=== PATIENT | female | born 1945 | race Caucasian/White ===

== ENCOUNTER 2016-11-20 07:00 | Inpatient (IN) | payer MEDICARE, OTHER ==
[~2016-11-20] VITALS: Ht 163 cm; Wt 54.0 kg
[2016-11-20 07:43] LABS: CREATININE 0.9 mg/dL (0.5-1.0); POTASSIUM 4.6 mmol/L (3.5-5.1)
[2016-11-21 05:17] LABS: HCT 28.6 % (37.0-47.0); HGB 9.6 g/dl (12.5-16.0); MCH 31.9 pg (25.0-31.0); MCHC 33.6 g/dL (32.0-36.0); MPV 9.4 fL (6.0-9.5); RBC 3.01 M/uL (4.20-5.40); RDW 12.4 % (11.5-14.0); WBC 12.6 K/uL (4.0-10.5)
[2016-11-21 06:13] LABS: CREATININE 0.9 mg/dL (0.5-1.0); POTASSIUM 4.3 mmol/L (3.5-5.1)
[2016-11-22 05:33] LABS: HCT 29.8 % (37.0-47.0); HGB 9.7 g/dl (12.5-16.0); MCH 31.7 pg (25.0-31.0); MCHC 32.6 g/dL (32.0-36.0); MCV 97.4 fL (78.0-100.0); MPV 9.4 fL (6.0-9.5); RBC 3.06 M/uL (4.20-5.40); RDW 12.5 % (11.5-14.0); WBC 11.2 K/uL (4.0-10.5)
[2016-11-23 06:45] LABS: HCT 27.9 % (37.0-47.0); HGB 9.1 g/dl (12.5-16.0); MCH 31.7 pg (25.0-31.0); MCHC 32.6 g/dL (32.0-36.0); MCV 97.2 fL (78.0-100.0); MPV 9.6 fL (6.0-9.5); RBC 2.87 M/uL (4.20-5.40); RDW 12.6 % (11.5-14.0); WBC 9.6 K/uL (4.0-10.5)
== END 2016-11-23 22:12 | DRG 470 ==
LOC: FMS 07:00
PROVIDERS: Nurse Practitioner Adult Health; ADMIT Legal Medicine
PROC: 0SRB04A Replacement of Left Hip Joint with Ceramic on Polyethylene Synthetic Substitute, Uncemented, Open Approach (ICD-10-PCS; principal; 2016-11-20 07:00)
DX: M16.12 Unilateral primary osteoarthritis, left hip (principal); K51.90 Ulcerative colitis, unspecified, without complications; E03.9 Hypothyroidism, unspecified; I10 Essential (primary) hypertension; E78.5 Hyperlipidemia, unspecified; Z93.2 Ileostomy status; Z79.899 Other long term (current) drug therapy
CPT/HCPCS: 36415; 73501; 76000; 80048; 86850; 86900; 86901; 88311; 94010; 97110; 97116; 97162; 97166; 97530; 97530-GP; 97535; C1713; C1776; J0131; J0697; J1100; J1170; J2270; J2405; J2704; J2710; J2795; J3010

== ENCOUNTER 2016-11-23 18:08 | Inpatient (IN) | payer MEDICARE, OTHER ==
[~2016-11-23] VITALS: Ht 160 cm; Wt 54.1 kg
[2016-11-26 06:35] LABS: INR 1.34 (0.9-1.2); PROTHROMBIN TIME 16.1 SECONDS (11.7-14.0)
[2016-11-29 05:46] LABS: INR 1.7 (0.9-1.2); PROTHROMBIN TIME 19.4 SECONDS (11.7-14.0)
--- NOTE | 2016-12-01 14:37 | NUR ---
MET WITH PT. PT. WAS GIVEN CHOICE OF D/C 12/02 OR 12/03. PT. CHOSE TO D/C HOME WITH SPOUSE ON 12/02. PT. REQUESTED [facility]. FIRST APPT. IS 12/03/16 @ 9:40 [facility] TO DELIVER A STRAIGHT CANE UPON DISCHARGE. PURCHASED A HIP KIT FOR PT. D/C NOTICE AND QUESTIONNAIRE GIVEN.
--- NOTE | 2016-12-02 11:21 | NUR ---
PT. D/C HOME WITH SPOUSE ON THIS DATE. PT. REQUESTED OUTPT AT [facility]. FIRST APPT. IS 12/03/16 @ 9:40 [facility] TO DELIVER A STRAIGHT CANE UPON DISCHARGE. D/C NOTICE AND QUESTIONNAIRE GIVEN.
--- NOTE | 2016-12-02 12:15 | NUR ---
71 YEAR OLD FEMALE DC HOME WITH SPOUSE, S/P LEFT ANTERIOR HIP, A/O X3, WENT OVER DC ORDERS R/V UNDERSTANDING
[2016-12-02] MEDS ORDERED: ESTRIOL/ESTRADIOL TOP (14:35)
[2016-12-02] MEDS ORDERED: RESTASIS1 EACH OU (14:36)
[2016-12-02] MEDS ORDERED: NASONEX NAS120 PUFFS (14:36)
[2016-12-02] MEDS ORDERED: COQ-10100 MG PO (14:36)
[2016-12-02] MEDS ORDERED: PRILOSEC20 MG PO (14:37)
[2016-12-02] MEDS ORDERED: SYNTHROID25 MCG PO (14:37)
[2016-12-02] MEDS ORDERED: CELEBREX **OUT100 MG PO (14:37)
[2016-12-02] MEDS ORDERED: ZOCOR20 MG PO (14:37)
[2016-12-02] MEDS ORDERED: PRINIVIL10 MG PO (14:38)
[2016-12-02] MEDS ORDERED: CALCIUM + VITA1 EACH PO (14:39)
[2016-12-02] MEDS ORDERED: CERTAGEN1 EACH PO (14:39)
[2016-12-02] MEDS ORDERED: MAG-OXIDE 400M400 MG PO (14:39)
[2016-12-02] MEDS ORDERED: FISH OIL PO (14:40)
[2016-12-02] MEDS ORDERED: LUTEIN40 MG PO (14:40)
[2016-12-02] MEDS ORDERED: PROBIOTIC1 EAC2 PO (14:41)
[2016-12-02] MEDS ORDERED: MELATONIN5 M2 PO (14:41)
[2016-12-02] MEDS ORDERED: IMODIUM2 MG PO (14:41)
[2016-12-02] MEDS ORDERED: PROGESTERONE200 MG PO (14:42)
[2016-12-02] MEDS ORDERED: NEURONTIN300 MG PO (14:42)
[2016-12-02] MEDS ORDERED: VITAMIN D1000 UNI1 PO (14:42)
[2016-12-02] MEDS ORDERED: PERCOCET 5/3251 TAB PO (14:43)
[2016-12-02] MEDS ORDERED: XARELTO10 MG PO (14:43)
== END 2016-12-02 10:50 | disposition home or self-care (01) | DRG 554 ==
LOC: FSNU 18:08
PROVIDERS: ADMIT Legal Medicine
DX: M16.12 Unilateral primary osteoarthritis, left hip (principal); K51.90 Ulcerative colitis, unspecified, without complications; E03.9 Hypothyroidism, unspecified; Z47.1 Aftercare following joint replacement surgery; Z96.642 Presence of left artificial hip joint; I10 Essential (primary) hypertension; E78.5 Hyperlipidemia, unspecified; Z93.2 Ileostomy status; Z79.899 Other long term (current) drug therapy
CPT/HCPCS: 36415; 85610; 88304; 97110; 97116; 97162; 97166; 97530; 97530-GP; 97535